=== PATIENT | female | born 1940 | race Caucasian/White ===

== ENCOUNTER 2017-12-28 10:40 | Outpatient (RCR) | payer OTHER | END 2018-01-15 | disposition home or self-care (01) | LOC: PTY 10:40 | DX: M51.26 Other intervertebral disc displacement, lumbar region (principal) ==

== ENCOUNTER 2018-01-16 10:57 | Outpatient (RCR) | payer OTHER | END 2018-02-15 | disposition home or self-care (01) | LOC: PTY 10:57 | DX: M51.26 Other intervertebral disc displacement, lumbar region (principal) | CPT/HCPCS: 97032; 97110; G0283 ==